=== PATIENT | male | born 1980 | race Caucasian/White ===

== ENCOUNTER 2023-04-10 11:09 | Inpatient (IN) ==
[2023-04-10] MEDS ORDERED: SODIUM CHLORIDE 0.9% 1000ML 1,000 ML IV ONE (11:20)
[2023-04-10] MEDS ORDERED: DIPHTHERIA/TETANUS/PERTUSSIS Vaccine (Tdap, Age 7+yrs) 0.5mL SYR/VL IM ONE ×2 (11:20→15:03)
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
[2023-04-10 12:14] LABS: Basophils # (auto) 0.02 K/uL (0-0.2); Basophils % (auto) 0.2 %; Eosinophils # (auto) 0.02 K/uL (0-0.50); Eosinophils % (auto) 0.2 %; Hemoglobin 15.9 g/dl (14.0-18.0); Immature Granulocytes # (auto) 0.04 K/uL (0.01-0.20); Immature Granulocytes % (auto) 0.3 %; Lymphocytes # (auto) 0.99 K/uL (1.2-3.4); Lymphocytes % (auto) 8.4 %; Mean Corpuscular Hemoglobin 31.5 pg (25.0-34.0); Mean Corpuscular Volume 85.1 fL (80.0-100.0); Mean Platelet Volume 9.5 fL (9.4-12.4); Monocytes # (auto) 0.75 K/uL (0.11-0.59); Monocytes % (auto) 6.4 %; Neutrophils # (auto) 9.94 K/uL (1.40-6.50); Neutrophils % (auto) 84.5 %; Platelet Count 194 K/uL (130-400); RDW Coefficient of Variation 11.8 % (11.5-14.5); RDW Standard Deviation 36.1 fL (36.4-46.3); Red Blood Count 5.05 M/uL (4.70-6.10); White Blood Count 11.76 K/ul (4.8-10.8)
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
[2023-04-10 12:31] LABS: Albumin Globulin Ratio 1.9 (0.9-2); Albumin Level 4.5 gm/dl (3.4-5.0); BUN Creatinine Ratio 14.9 (10-20); Bilirubin,Total 0.8 mg/dl (0.2-1.0); Calcium 9.5 mg/dl (8.6-10.3); Creatinine Clr Calc Pharmacy 97.2 ml/min; Est GFR (African American) 107.3 ml/min; Est GFR (Non-African American) 92.6 ml/min; Globulin 2.4 gm/dl (2.5-4.0); Potassium 4.4 mmol/L (3.5-5.1); Total Protein 6.9 gm/dl (6.0-8.3)
[2023-04-10] MEDS ORDERED: OPTIRAY 320 100ml IV ONE (12:37)
[2023-04-10 12:38] LABS: Troponin I High Sensitivity 27.9 pg/ml (0-20)
[2023-04-10 12:39] LABS: INR 1.1 (0.9-1.1); Prothrombin Time 11.5 Seconds (9.0-12.0)
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
--- NOTE | 2023-04-10 12:56 | Electrocardiogram Report ---
Test Reason : Blood Pressure : / mmHG Vent. Rate : 075 BPM Atrial Rate : 075 BPM P-R Int : 140 ms QRS Dur : 094 ms QT Int : 376 ms P-R-T Axes : 060 019 008 degrees QTc Int : 419 ms Normal sinus rhythm Left atrial enlargement Incomplete right bundle branch block Abnormal ECG No previous ECGs available Confirmed by Taz Peralta ([id number]) on 04/10/2023 12:56:00 PM Referred By: Confirmed By:Taz Peralta
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
[2023-04-10 14:02] LABS: Appearance Urine Clear (Clear); Bilirubin Urine Negative (Negative); Blood Urine Negative (Negative); Color Urine Yellow; Glucose Urine UA Trace (Negative); Ketones Urine Negative (Negative); Leukocyte Esterase Urine Negative (Negative); Nitrite Urine Negative (Negative); Protein Urine Negative (Negative); Specific Gravity Urine 1.023 (1.000-1.030); Urobilinogen Urine Negative (Negative); pH Urine 8.5 (4.5-7.5)
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
[2023-04-10] MEDS ORDERED: ONDANSETRON INJ 2 MG/ML 2 ML VIAL IV PRN (17:54)
[2023-04-10] MEDS ORDERED: Nursing to Pharmacy Communication SCH (19:15)
[2023-04-10] MEDS: ACETAMINOPHEN 325 MG TAB PO PRN (20:14)
[2023-04-10] MEDS ORDERED: ENOXAPARIN INJ 40 MG/0.4 ML SYR SQ SCH (21:00)
[2023-04-11] MEDS: ACETAMINOPHEN 325 MG TAB PO PRN (02:12)
[2023-04-11 02:31] LABS: Basophils # (auto) 0.03 K/uL (0-0.2); Basophils % (auto) 0.4 %; Eosinophils % (auto) 1.2 %; Hematocrit (blood only) 41.9 % (42.0-52.0); Immature Granulocytes # (auto) 0.02 K/uL (0.01-0.20); Immature Granulocytes % (auto) 0.2 %; Lymphocytes # (auto) 2.14 K/uL (1.2-3.4); Lymphocytes % (auto) 26.4 %; Mean Corpuscular Hemoglobin 32.1 pg (25.0-34.0); Mean Corpuscular Hgb Conc 35.8 g/dL (32.0-36.0); Mean Corpuscular Volume 89.5 fL (80.0-100.0); Mean Platelet Volume 9.1 fL (9.4-12.4); Monocytes # (auto) 0.72 K/uL (0.11-0.59); Monocytes % (auto) 8.9 %; Neutrophils # (auto) 5.09 K/uL (1.40-6.50); Neutrophils % (auto) 62.9 %; Platelet Count 182 K/uL (130-400); RDW Coefficient of Variation 11.9 % (11.5-14.5); RDW Standard Deviation 37.9 fL (36.4-46.3); Red Blood Count 4.68 M/uL (4.70-6.10)
[2023-04-11 02:40] LABS: Albumin Globulin Ratio 1.8 (0.9-2); Albumin Level 3.9 gm/dl (3.4-5.0); BUN Creatinine Ratio 18.1 (10-20); Bilirubin,Total 0.5 mg/dl (0.2-1.0); Calcium 8.8 mg/dl (8.6-10.3); Creatinine Clr Calc Pharmacy 104.5 ml/min; Est GFR (African American) 117.1 ml/min; Globulin 2.2 gm/dl (2.5-4.0); Potassium 3.9 mmol/L (3.5-5.1); Total Protein 6.1 gm/dl (6.0-8.3)
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
--- NOTE | 2023-04-11 10:01 | Electrocardiogram Report ---
Test Reason : Blood Pressure : / mmHG Vent. Rate : 058 BPM Atrial Rate : 058 BPM P-R Int : 128 ms QRS Dur : 098 ms QT Int : 450 ms P-R-T Axes : 089 051 014 degrees QTc Int : 441 ms Sinus bradycardia Otherwise normal ECG When compared with ECG of 10-APR-2023 11:17, Incomplete right bundle branch block is no longer Present Confirmed by Taz Peralta ([id number]) on 04/11/2023 10:01:49 AM Referred By: REFERRED SELF Confirmed By:Taz Peralta
--- NOTE | 2023-04-11 10:07 | Electrocardiogram Report ---
Test Reason : Blood Pressure : / mmHG Vent. Rate : 066 BPM Atrial Rate : 066 BPM P-R Int : 124 ms QRS Dur : 102 ms QT Int : 416 ms P-R-T Axes : 068 040 031 degrees QTc Int : 436 ms Sinus rhythm with marked sinus arrhythmia Incomplete right bundle branch block Normal ECG When compared with ECG of 11-APR-2023 06:22, Incomplete right bundle branch block now present Confirmed by Taz Peralta ([id number]) on 04/11/2023 10:07:01 AM Referred By: REFERRED SELF Confirmed By:Taz Peralta
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
[2023-04-12 07:31] LABS: Estimated Average Glucose 94 mg/dl; Hemoglobin A1C 4.9 % (4.5-5.6)
[2023-04-12 09:49] LABS: iSTAT Hemoglobin 15.3 g/dl (14.0-18.0); iSTAT Ionized Calcium 1.16 mmol/l (1.12-1.32); iSTAT Potassium 4.4 mmol/L (3.3-5.0)
== END 2023-04-11 12:53 | disposition home or self-care (01) | DRG 563 ==
LOC: ED 11:09 → 2S 15:28 → SUATTDRO 15:28 → 2S 17:25